=== PATIENT | male | born 1960 | race Caucasian/White ===

== ENCOUNTER 2017-02-17 06:44 | Day surgery (SDC) | payer BC, OTHER ==
[2017-02-14 10:40] VITALS: BMI 35.8
[~2017-02-17 06:44] MED LIST: LACTATED RINGERS 1,000 ML IV SCH
[2017-02-17 07:06] VITALS: RESP 16; TEMP 97.7
[2017-02-17] MEDS ORDERED: LIDOCAINE 1% 20 ML VIAL (10MG/ML) FOR IV START INTRADERMA ONE (07:16)
[2017-02-17 07:22] LABS: Glucose,Whole Blood 144 mg/dL (75-99)
[2017-02-17] MEDS ORDERED: LIDOCAINE 1% INJ 10MG/ML (20 ML MDV) ONE (07:54)
[2017-02-17] MEDS ORDERED: PROPOFOL 10 MG/ML 20 ML VIAL IV ONE (07:54)
--- NOTE | 2017-02-17 08:19 | P.PCN ---
Date of Procedure: 02/17/17 Preoperative Diagnosis: Postoperative Diagnosis: Procedure(s) Performed: BRIEF HISTORY: Patient is a 56-year-old pleasant white male, scheduled for an elective colonoscopy as a part of evaluation of rectal bleeding with mucus in the stool associated with rectal urgency and frequency for the last 6 weeks duration. He has bowel movements anywhere from 7-8 a day with almost blood in every bowel movement is looser consistency. His and scheduled for colonoscopy to evaluate further. No prior history of inflammatory bowel disease. His last colonoscopy was done several months ago and according to the patient was within normal limits. PROCEDURE PERFORMED: Colonoscopy with biopsy. PREOPERATIVE DIAGNOSIS: Diarrhea, rectal urgency with blood and mucus in the stool of 6 weeks.. IV sedation per Anesthesia. PROCEDURE: After informed consent was obtained, the patient, was brought into the endoscopy unit. IV sedation was administered by Anesthesia under continuous monitoring. Digital rectal examination was normal. Initially the Olympus CF- 160 flexible video colonoscope was then inserted in the rectum, gradually advanced into the cecum without any difficulty. Careful examination was performed as the scope was gradually being withdrawn. Ileocecal valve and the appendiceal orifice were visualized and appeared normal. Prep was excellent. Mucosa of the cecum, ascending colon, transverse colon, descending colon appeared normal. There was evidence of active colitis with mucosal erythema, friability granularity and spontaneous bleeding with exudates noted in the rectum and sigmoid colon up to 43 m from the anal verge consistent with active proper sigmoiditis and multiple biopsies were done from this area. Retroflexion was performed in the rectum and no lesions were seen. The patient tolerated the procedure well. IMPRESSION: Mucosal erythema, friability, granularity with exudates and spontaneous bleeding involving the rectum and the sigmoid colon up to 47 m from the anal verge consistent with active proctosigmoiditis. Rest of the colon appeared normal. RECOMMENDATIONS: Findings of this examination were discussed with the patient as well as his family. He was advised to follow with the biopsy results. He' ll be seen in office in a week to discuss the biopsy results. Implants: Indications for Procedure: Operative Findings: Description of Procedure:
[2017-02-17 09:09] VITALS: BP 114/79; PULSE 67
== END 2017-02-17 09:28 | disposition home or self-care (01) ==
LOC: ORWHC2ENDO 06:44
PROVIDERS: ATTEND Internal Medicine Gastroenterology
DX: K52.9 Noninfective gastroenteritis and colitis, unspecified (principal); K62.5 Hemorrhage of anus and rectum
CPT/HCPCS: 88305; 45380; J2001; J2704

== ENCOUNTER → 2018-04-13 | Outpatient (CLI) | payer BC, OTHER | END | disposition home or self-care (01) | LOC: RADMRIMAIN 15:25 | PROVIDERS: ATTEND Family Medicine | DX: Z53.9 Procedure and treatment not carried out, unspecified reason (principal) ==

== ENCOUNTER 2019-04-08 01:38 | Emergency (ER) | payer BC, OTHER ==
[2019-04-08 01:57] VITALS: BP 131/84; PULSE 65; RESP 18; TEMP 97.6
[2019-04-08] MEDS ORDERED: ACETAMINOPHEN TAB 500 MG TAB PO STA (02:25)
--- NOTE | 2019-04-08 02:47 | ED ---
General Adult HPI - General Chief complaint: Back Pain/Injury Stated complaint: INJURED RIBS AT WORK Time Seen by Provider: 04/08/19 02:06 Source: patient Mode of arrival: ambulatory Limitations: no limitations - History of Present Illness Initial comments: 58-year-old male patient presents to the emergency department today for evaluation of right rib injury. Patient states he was at work when an overhead door became lodged, pulling him into some wing nuts, causing injury to his right ribs. Patient reports abrasion to the area. States he does feel somewhat short of breath. He reports tenderness over the area. He denies any cough or hemoptysis. Denies any other injuries. Last tetanus vaccine was one year ago. Patient does take meloxicam at home but has had no other pain medications. Patient denies any headache, neck pain, back pain, dizziness, weakness, abdominal pain, nausea, vomiting, or difficulties with bowel movements or urination. - Related Data Home Medications Medication Instructions Recorded Confirmed Insulin NPH Hum/Reg Insulin Hm 1 unit SQ TID PRN 04/08/19 04/08/19 [Novolin 70-30 Flexpen] metFORMIN HCL 500 mg PO BID 04/08/19 04/08/19 Previous Rx's Medication Instructions Recorded Acetaminophen-Codeine 300-30mg 1 tab PO Q6H PRN #12 tablet 04/08/19 [Tylenol #3] Allergies Allergy/AdvReac Type Severity Reaction Status Date / Time No Known Allergies Allergy Verified 04/08/19 01:57 Review of Systems ROS Statement: Those systems with pertinent positive or pertinent negative responses have been documented in the HPI. ROS Other: All systems not noted in ROS Statement are negative. Past Medical History Past Medical History: Diabetes Mellitus, GI Bleed, Osteoarthritis (OA) Additional Past Medical History / Comment(s): Pt states diet controlled Diabetes, arthritis in back, GI bleed "a few months ago". Hx bilateral carpal Tunnel and Tennis Elbow. History of Any Multi-Drug Resistant Organisms: None Reported Past Surgical History: Hernia Repair Additional Past Surgical History / Comment(s): Colonoscopy X2 Additional Past Anesthesia/Blood Transfusion Reaction / Comment(s): States takes him a long time to wake up. Pt is adopted, family history is unknown. Past Psychological History: No Psychological Hx Reported Smoking Status: Never smoker Past Alcohol Use History: None Reported Past Drug Use History: None Reported - Past Family History Father Family Medical History: Unable to Obtain Additional Family Medical History / Comment(s): Pt is adopted, family history is unknown. General Exam Limitations: no limitations General appearance: alert, in no apparent distress, other (Physical well- developed, well-nourished adult male patient in no acute distress. Vital signs upon presentation are temperature 97.6F, pulse 65, respirations 18, blood pressure 131/84, pulse ox 100% on room air.) ENT exam: Present: normal exam, normal oropharynx, mucous membranes moist Respiratory exam: Present: normal lung sounds bilaterally. Absent: respiratory distress, wheezes, rales, rhonchi, stridor Cardiovascular Exam: Present: regular rate, normal rhythm, normal heart sounds. Absent: systolic murmur, diastolic murmur, rubs, gallop, clicks GI/Abdominal exam: Present: soft, normal bowel sounds. Absent: distended, tenderness, guarding, rebound, rigid Neurological exam: Present: alert, oriented X3, CN II-XII intact Psychiatric exam: Present: normal affect, normal mood Expanded 1 - 8in linear abrasion to the right ribs. Surrounding tenderness and soft tis sheryl swelling noted. Course Vital Signs 04/08/19 01:51 Temperature 97.6 F Pulse Rate 65 Respiratory 18 Rate Blood Pressure 131/84 O2 Sat by Pulse 100 Oximetry Medical Decision Making - Medical Decision Making 58-year-old male patient presented to the emergency department today for evaluation of right rib injury. Physical examination did reveal abrasion, soft tissue swelling, and tenderness over the right ribs. X-rays are obtained and showed no acute fracture. Patient symptoms are consistent with rib contusion or occult fracture. He'll be treated as such with incentive spirometry, pain medication, and rest. He is instructed to follow up with [facility] or his primary care physician for recheck in 1-2 days. Return parameters were discussed in detail. She verbalizes understanding and agrees with this plan. - Radiology Data Radiology results: report reviewed, image reviewed Frontal and oblique views of the right ribs and frontal view of the chest is obtained. Report was reviewed in its entirety. Impression by Dr. Alex shows no pneumothorax. No rib fracture. Disposition Clinical Impression: Contusion of rib on right side, Abrasion of right chest wall Disposition: HOME SELF-CARE Condition: Good Instructions (If sedation given, give patient instructions): Rib Fracture (ED), Abrasion (ED) Additional Instructions: Perform coughing and deep breathing exercises throughout the day. Do incentive spirometer 10 times an hour while awake. Continue meloxicam. Take Tylenol with codeine sparingly for severe pain. Rest. Follow-up with your primary care physician or [facility] health for recheck in 1-2 days. Return to the emergency department immediately for any new, worsening, or concerning symptoms. Prescriptions: Acetaminophen-Codeine 300-30mg [Tylenol #3] 1 tab PO Q6H PRN #12 tablet PRN Reason: Pain Is patient prescribed a controlled substance at d/c from ED?: Yes When asked, does pt state using other controlled substances?: No If prescribed controlled substance>3 days was MAPS reviewed?: Prescribed <3 Days If opioid is for acute pain is fill amount 7 days or less?: Yes If Rx opioid, was Start Talking consent form obtained?: Yes Referrals: Gregg Rodriguez MD [Primary Care Provider] - 1-2 days Time of Disposition: 03:04
--- NOTE | 2019-04-08 02:50 | XR ---
EXAM: XR Right Ribs and AP Chest, 3 or More Views CLINICAL HISTORY: Chest pain. TECHNIQUE: Frontal and oblique views of the right ribs and frontal view of the chest. COMPARISON: None. FINDINGS: Lungs: No consolidative change. Pleural space: No pneumothorax is noted. No pleural effusions. Heart: Heart is normal in size. Mediastinum: Unremarkable. Bones/joints: No acute right rib fracture. IMPRESSION: No pneumothorax. No rib fracture.
[2019-04-08] MEDS ORDERED: ACET/COD 300 MG/30 MG STARTER PACK 6 TAB BTL PO STA (03:04)
== END 2019-04-08 03:41 | disposition home or self-care (01) ==
LOC: EC 01:38
DX: S20.211A Contusion of right front wall of thorax, initial encounter (principal); E11.9 Type 2 diabetes mellitus without complications; Z79.4 Long term (current) use of insulin; Z87.19 Personal history of other diseases of the digestive system; W22.8XXA Striking against or struck by other objects, initial encounter; Y92.69 Other specified industrial and construction area as the place of occurrence of the external cause; Y99.0 Civilian activity done for income or pay
CPT/HCPCS: 99283

== ENCOUNTER 2019-04-09 13:44 | Emergency (ER) | payer BC, OTHER ==
[2019-04-09 13:51] VITALS: RESP 18; TEMP 98.3
[2019-04-09] MEDS ORDERED: SODIUM CHLORIDE 0.9% 1,000 ML IV STA (14:03)
--- NOTE | 2019-04-09 14:07 | ED ---
General Adult HPI - General Chief complaint: Abdominal Pain Stated complaint: Sent by possible internal organ damage/Kidney Time Seen by Provider: 04/09/19 13:56 Source: patient, RN notes reviewed Mode of arrival: ambulatory Limitations: no limitations - History of Present Illness Initial comments: Patient is a pleasant 58-year-old male presenting to the emergency department following injury to the lower chest/upper abdomen. Incident occurred yesterday at work. Patient was trying to move a metal door. Patient slipped and fell into the door. Patient complains of discomfort of the right lower ribs and somewhat the upper abdomen. Patient states abdominal discomfort just started today. Patient states yesterday was just rib discomfort. Patient denies any difficulty in breathing. Patient states discomfort is only mild. Patient did [facility] and was advised to return to emergency department. Patient was here yesterday and did have reported negative x-rays. - Related Data Home Medications Medication Instructions Recorded Confirmed metFORMIN HCL 500 mg PO BID 04/08/19 04/09/19 Insulin Aspart [NovoLOG Flexpen] See Protocol SQ ACHS 04/09/19 04/09/19 Meloxicam 15 mg PO DAILY 04/09/19 04/09/19 Allergies Allergy/AdvReac Type Severity Reaction Status Date / Time No Known Allergies Allergy Verified 04/09/19 14:03 Review of Systems ROS Statement: Those systems with pertinent positive or pertinent negative responses have been documented in the HPI. ROS Other: All systems not noted in ROS Statement are negative. Constitutional: Denies: fever Eyes: Denies: eye pain ENT: Denies: ear pain Respiratory: Denies: cough, dyspnea Cardiovascular: Denies: chest pain Endocrine: Denies: fatigue Gastrointestinal: Reports: as per HPI Genitourinary: Denies: dysuria Musculoskeletal: Denies: back pain Skin: Denies: rash Neurological: Denies: weakness Past Medical History Past Medical History: Diabetes Mellitus, Osteoarthritis (OA) Additional Past Medical History / Comment(s): Pt states diet controlled Diabetes, arthritis in back, colitis, bilateral carpal Tunnel and Tennis Elbow. History of Any Multi-Drug Resistant Organisms: None Reported Past Surgical History: Hernia Repair Additional Past Surgical History / Comment(s): Colonoscopy X2 Additional Past Anesthesia/Blood Transfusion Reaction / Comment(s): States takes him a long time to wake up. Pt is adopted, family history is unknown. Past Psychological History: No Psychological Hx Reported Smoking Status: Never smoker Past Alcohol Use History: None Reported Past Drug Use History: None Reported - Past Family History Father Family Medical History: Unable to Obtain Additional Family Medical History / Comment(s): Pt is adopted, family history is unknown. General Exam Limitations: no limitations General appearance: alert, in no apparent distress Head exam: Present: atraumatic Eye exam: Present: normal appearance, PERRL ENT exam: Present: normal oropharynx Neck exam: Present: normal inspection Respiratory exam: Present: normal lung sounds bilaterally, chest wall tenderness (Right lower anterior ribs near site of abrasion) Cardiovascular Exam: Present: regular rate, normal rhythm Expanded Peripheral pulses: 2+: Posterior Tibialis (R), Posterior Tibialis (L) GI/Abdominal exam: Present: soft, tenderness (Mild to moderate tenderness right upper abdomen), normal bowel sounds. Absent: distended, guarding, rebound, rigid, pulsatile mass Extremities exam: Present: normal inspection Back exam: Present: normal inspection. Absent: tenderness Neurological exam: Present: alert Psychiatric exam: Present: normal affect, normal mood Skin exam: Present: normal color Course Vital Signs 04/09/19 04/09/19 04/09/19 13:45 15:57 16:16 Temperature 98.3 F Pulse Rate 56 L 83 61 Respiratory 18 18 18 Rate Blood Pressure 158/86 133/74 120/70 O2 Sat by Pulse 96 97 70 L Oximetry - Reevaluation(s) Reevaluation #1: 04/09/19 15:46 Patient unable to do computed tomography scan secondary to anxiety despite 2 attempts and Ativan. Patient refuses try again without conscious sedation. Procedures - Procedural Sedation Procedural Sedation Start Time: 16:00 Procedural Sedation Stop Time: 16:25 Indications: diagnostic imaging procedure Mallampati Airway Score: 3 Preparation: qual field manager applied, pulse oximeter, capnometry used, supplemental O2 applied IV Propofol Dose (mgs): 80 Complications: none Patient Tolerated Procedure: well, no complications Medical Decision Making - Medical Decision Making Patient reevaluated and alert and appropriate. No nystagmus. Patient updated on results. Patient advised against driving. - Lab Data Result diagrams: 04/09/19 14:20 04/09/19 14:20 Lab Results 04/09/19 04/09/19 04/09/19 Range/Units 14:20 14:20 14:20 WBC 6.9 (3.8-10.6) k/uL RBC 4.85 (4.30-5.90) m/uL Hgb 15.1 (13.0-17.5) gm/dL Hct 43.8 (39.0-53.0) % MCV 90.2 (80.0-100.0) fL MCH 31.1 (25.0-35.0) pg MCHC 34.4 (31.0-37.0) g/dL RDW 14.3 (11.5-15.5) % Plt Count 211 (150-450) k/uL Neutrophils % 50 % Lymphocytes % 37 % Monocytes % 5 % Eosinophils % 4 % Basophils % 2 % Neutrophils # 3.4 (1.3-7.7) k/uL Lymphocytes # 2.5 (1.0-4.8) k/uL Monocytes # 0.4 (0-1.0) k/uL Eosinophils # 0.3 (0-0.7) k/uL Basophils # 0.1 (0-0.2) k/uL Sodium 141 (137-145) mmol/L Potassium 3.8 (3.5-5.1) mmol/L Chloride 103 (98-107) mmol/L Carbon Dioxide 31 H (22-30) mmol/L Anion Gap 7 mmol/L BUN 20 (9-20) mg/dL Creatinine 0.91 (0.66-1.25) mg/dL Est GFR (CKD-EPI)AfAm >90 (>60 ml/min/1.73 sqM) Est GFR (CKD-EPI)NonAf >90 (>60 ml/min/1.73 sqM) Glucose 125 H (74-99) mg/dL Calcium 9.1 (8.4-10.2) mg/dL Total Bilirubin 1.1 (0.2-1.3) mg/dL AST 47 (17-59) U/L ALT 52 (21-72) U/L Alkaline Phosphatase 118 (38-126) U/L Total Protein 7.6 (6.3-8.2) g/dL Albumin 4.1 (3.5-5.0) g/dL Amylase 63 (30-110) U/L Lipase 45 (23-300) U/L Urine Color Yellow Urine Appearance Clear (Clear) Urine pH 6.0 (5.0-8.0) Ur Specific [place] 1.017 (1.001-1.035) Urine Protein Negative (Negative) Urine Glucose (UA) 1+ H (Negative) Urine Ketones Negative (Negative) Urine Blood Negative (Negative) Urine Nitrite Negative (Negative) Urine Bilirubin Negative (Negative) Urine Urobilinogen 8.0 (<2.0) mg/dL Ur Leukocyte Esterase Negative (Negative) - Radiology Data Radiology results: report reviewed (Computed tomography scan of the chest abdomen pelvis does not reveal traumatic injury.) Disposition Clinical Impression: Contusion of rib on right side, Abdominal contusion Disposition: HOME SELF-CARE Condition: Stable Instructions (If sedation given, give patient instructions): Moderate Sedation (ED), Rib Contusion (ED), Blunt Abdominal Injury (ED) Additional Instructions: Please follow-up with [facility] tomorrow as directed. Return for difficulty breathing, increased pain, weakness, worsening symptoms or other concerns. Please have somebody else to drive home. Is patient prescribed a controlled substance at d/c from ED?: No Referrals: Gregg Rodriguez MD [Primary Care Provider] - 1-2 days Time of Disposition: 16:36
[2019-04-09 14:40] LABS: Basophils # (A) 0.1 k/uL (0-0.2); Basophils % (A) 2 %; Eosinophils # (A) 0.3 k/uL (0-0.7); Eosinophils % (A) 4 %; HCT 43.8 % (39.0-53.0); HGB 15.1 gm/dL (13.0-17.5); Lymphocytes # (A) 2.5 k/uL (1.0-4.8); Lymphocytes % (A) 37 %; MCH 31.1 pg (25.0-35.0); MCHC 34.4 g/dL (31.0-37.0); MCV 90.2 fL (80.0-100.0); Mean Platelet Volume 7.5; Monocytes # (A) 0.4 k/uL (0-1.0); Monocytes % (A) 5 %; Neutrophils # (A) 3.4 k/uL (1.3-7.7); Neutrophils % (A) 50 %; Platelet Count 211 k/uL (150-450); RBC 4.85 m/uL (4.30-5.90); RDW 14.3 % (11.5-15.5); WBC 6.9 k/uL (3.8-10.6)
[2019-04-09 14:43] LABS: ALT 52 U/L (21-72); AST 47 U/L (17-59); African American GFR (CKD) >90 (>60 ml/min/1.73 sqM); Albumin 4.1 g/dL (3.5-5.0); Alkaline Phosphatase 118 U/L (38-126); Amylase 63 U/L (30-110); Anion Gap 7 mmol/L; Blood Urea Nitrogen 20 mg/dL (9-20); Calcium 9.1 mg/dL (8.4-10.2); Carbon Dioxide 31 mmol/L (22-30); Chloride 103 mmol/L (98-107); Glucose 125 mg/dL (74-99); Potassium 3.8 mmol/L (3.5-5.1); Sodium 141 mmol/L (137-145); Total Bilirubin 1.1 mg/dL (0.2-1.3); Total Protein 7.6 g/dL (6.3-8.2)
[2019-04-09 14:55] LABS: Appearance,Urine Clear (Clear); Bilirubin,Urine Negative (Negative); Blood,Urine Negative (Negative); Color,Urine Yellow; Glucose,Urine (UA) 1+ (Negative); Ketones,Urine Negative (Negative); Leukocyte Esterase,Urine Negative (Negative); Nitrite,Urine Negative (Negative); Protein,Urine Negative (Negative); Specific Gravity,Urine 1.017 (1.001-1.035)
[2019-04-09] MEDS ORDERED: LORazepam 2 MG/ML INJ IV STA (15:01)
[2019-04-09] MEDS ORDERED: PROPOFOL 10 MG/ML 20 ML VIAL IV ONE ×2 (15:35→16:21)
--- NOTE | 2019-04-09 16:30 | CT ---
EXAMINATION TYPE: CT ChestAbdPelvis w con DATE OF EXAM: 04/09/2019 COMPARISON: None. HISTORY: Right sided pain post fall CT DLP: 2979.4 mGycm. Automated Exposure Control for Dose Reduction was Utilized. CONTRAST: CT scan of the thorax, abdomen and pelvis is performed with IV Contrast, patient injected with 100 mL of Isovue 300. FINDINGS: Suboptimal study due to patient's large body habitus. LUNGS: There is respiratory motion artifact making evaluation suboptimal. Low lung volumes are presen t. No suspicious focal consolidation. No pleural effusion or pneumothorax. Dependent atelectasis. No concerning masses. MEDIASTINUM: There are no greater than 1 cm hilar or mediastinal lymph nodes. No cardiomegaly or pe ricardial effusion is seen. OTHER: Bilateral subareolar gynecomastia. LIVER/GB: Liver is diffusely low dense consistent with diffuse fatty infiltration. PANCREAS: No significant abnormality is seen. SPLEEN: No significant abnormality is seen. ADRENALS: No significant abnormality is seen. KIDNEYS: No significant abnormality is seen. BOWEL: No significant abnormality is seen. GENITAL ORGANS: Central calcifications within normal-sized prostate. LYMPH NODES: No greater than 1cm abdominal or pelvic lymph nodes are appreciated. OSSEOUS STRUCTURES: No significant abnormality is seen. OTHER: There is a [place] right paraumbilical hernia containing fat axial image 95. IMPRESSION: No acute posttraumatic finding clearly identified in particular there is no acute osseous fracture, abnormal fluid collection, or evidence of solid organ injury in the thorax, abdomen, or pe lvis.
[2019-04-09 17:18] VITALS: BP 139/90; PULSE 64
== END 2019-04-09 17:10 | disposition home or self-care (01) ==
LOC: EC 13:44
DX: S30.1XXA Contusion of abdominal wall, initial encounter (principal); S20.211A Contusion of right front wall of thorax, initial encounter; M19.90 Unspecified osteoarthritis, unspecified site; E11.9 Type 2 diabetes mellitus without complications; M47.9 Spondylosis, unspecified; Z79.4 Long term (current) use of insulin; Z79.1 Long term (current) use of non-steroidal anti-inflammatories (NSAID); Z53.9 Procedure and treatment not carried out, unspecified reason; W01.0XXA Fall on same level from slipping, tripping and stumbling without subsequent striking against object, initial encounter; Y93.89 Activity, other specified; Y92.69 Other specified industrial and construction area as the place of occurrence of the external cause; Y99.0 Civilian activity done for income or pay
CPT/HCPCS: 36415; 80053; 82150; 83690; 85025; 81003; 71260; 74177; 99284; 96374; 96361 ×2; 99152; 99153; J2060; J2704; Q9967

== ENCOUNTER → 2020-05-19 | Outpatient (CLI) | payer BC ==
[2020-05-19 15:00] LABS: ALT 36 U/L (10-49); AST 35 U/L (14-35); African American GFR (CKD) 108.7 (60.0-200.0); Albumin/Globulin Ratio 1.32 (1.60-3.17); Alkaline Phosphatase 102 U/L (41-126); Calcium 9.1 mg/dL (8.7-10.3); Carbon Dioxide 27.7 mmol/L (21.6-31.8); Chloride 106 mmol/L (96-109); Globulin 3.1 g/dL (1.6-3.3); Glucose 126 mg/dL (70-110); Non-African American GFR(CKD) 93.8 (60.0-200.0); Potassium 4.1 mmol/L (3.5-5.5); Sodium 141 mmol/L (135-145); Total Bilirubin 0.9 mg/dL (0.2-1.2); Total Protein 7.2 g/dL (6.2-8.2)
[2020-05-19 15:48] LABS: Vitamin B12 >4000.0 pg/mL (211-911)
== END | disposition home or self-care (01) ==
LOC: LABWHC1 10:25
PROVIDERS: ATTEND Internal Medicine Endocrinology, Diabetes & Metabolism
DX: E11.65 Type 2 diabetes mellitus with hyperglycemia (principal); I10 Essential (primary) hypertension; E78.2 Mixed hyperlipidemia
CPT/HCPCS: 36415; 80053; 82533; 82607; 84439; 84443; 84681